=== PATIENT | male | born 1965 | race Caucasian/White ===

== ENCOUNTER 2017-02-07 12:24 | Emergency (ER) | payer SELFPAY ==
[~2017-02-07] VITALS: Ht 182.9 cm; Wt 102.0 kg
[~2017-02-07 12:24] MED LIST: DICL75 PO; ROBA750T3 PO
[2017-02-07 12:31] VITALS: BP 128/72; PULSE 78; RESP 18; TEMP 98.4; O2SAT 97
--- NOTE | 2017-02-07 13:48 | RADRPT ---
EXAM DATE/TIME: 02/07/2017 13:35 [place] COMPARISON: No previous studies available for comparison. INDICATIONS : Pain and swelling right elbow, insect bite Sunday. MEDICAL HISTORY : None. SURGICAL HISTORY : None. ENCOUNTER: Initial ACUITY: 4 - 6 days PAIN SCORE: 5/10 LOCATION: Right elbow FINDINGS: Soft tissue swelling of the olecranon bursa without joint effusion or fracture. Bone density is norm al. CONCLUSION: Soft tissue swelling otherwise negative. Quoc Chang MD FACR on February 07, 2017 at 13:45 Board Certified Radiologist. This report was verified electronically.
[2017-02-07] MEDS ORDERED: CEPH-460 PO (13:56)
[2017-02-07] MEDS ORDERED: BACT800T5 PO (13:56)
--- NOTE | 2017-02-07 13:57 | PD ---
HPI . Right elbow redness Chief Complaint: Skin Problem Time Seen by Provider: 12:51 Travel History International Travel<30 days: No Contact w/Intl Traveler<30days: No Traveled to known affect area: No History of Present Illness HPI 51-year-old male patient presents emergency department for evaluation of right elbow redness and swelling. Patient states he was cleaning out a shed 5 days ago and believes he was bit by a spider. Patient denies any major medical history and doesn't take any daily medication. Patient denies any fevers, chills, malaise, chest pain, shortness breath. Patient denies any history of MDRO. Patient denies any IV drug use. Patient is up-to-date on his tetanus. [facility] Past Medical History Medical History: Denies Significant Hx Tetanus Vaccination: < 5 Years Past Surgical History Surgical History: No Previous Surgery Social History Alcohol Use: Yes Tobacco Use: Yes (1 PPD) Substance Use: No Allergies-Medications (Allergen,Severity, Reaction): Coded Allergies: No Known Allergies (Unverified Adverse Reaction, Unknown, 02/07/17) Reported Meds & Prescriptions Reported Meds & Active Scripts Active Keflex (Cephalexin) 500 Mg Cap 500 Mg PO Q6H 10 Days Bactrim DS (Sulfamethoxazole-Trimethoprim) 800-160 Mg Tab 1 Tab PO BID 10 Days Review of Systems Except as stated in HPI: all other systems reviewed are Neg Physical Exam Narrative GENERAL: Well-nourished, well-developed 51-year-old male patient in no acute distress. Nontoxic appearing. SKIN: Erythema to the right elbow. HEAD: Normocephalic. Atraumatic. EYES: No scleral icterus. No injection or drainage. NECK: Supple, trachea midline. No JVD or lymphadenopathy. CARDIOVASCULAR: Regular rate and rhythm without murmurs, gallops, or rubs. Radial Pulses +2 bilaterally. RESPIRATORY: Breath sounds equal bilaterally. No accessory muscle use. GASTROINTESTINAL: Abdomen soft, non-tender, nondistended. MUSCULOSKELETAL: Full range of motion of the right elbow with flexion and extension. No ecchymosis, obvious deformity, cyanosis, or edema. BACK: Nontender without obvious deformity. No CVA tenderness. Data Data Last Documented VS Vital Signs Date Time Temp Pulse Resp B/P (MAP) Pulse Ox O2 Delivery O2 Flow Rate FiO2 02/07/17 12:31 98.4 78 18 128/72 (90) 97 Orders Orders Elbow, Complete (4 Vws) (02/07/17 13:18) Ed Discharge Order (02/07/17 13:57) MDM Medical Decision Making Medical Screen Exam Complete: Yes Emergency Medical Condition: Yes Differential Diagnosis Differential diagnosis include but not limited to cellulitis, abscess, septic arthritis, bursitis Narrative Course 51-year-old male patient presents emergency department for evaluation of erythema to the right elbow since last Sunday. Patient believes he was bitten by a spider. X-ray of the right elbow ordered and pending. Patient states he was able to squeeze purulent drainage out of the elbow earlier today however at this time the area is indurated with no purulent drainage or area of fluctuation. Patient has any fever, chills, malaise. X-ray shows soft tissue swelling but is otherwise negative. Patient treated for cellulitis with Bactrim and Keflex and discharged home with instructions to follow-up with his primary care return to the emergency Department with any worsening condition. Last Impressions Elbow X-Ray 02/07/17 1318 Signed Impressions: Service Date/Time: Sunday, February 07, 2017 13:35 - CONCLUSION: Soft tissue swelling otherwise negative. Quoc Chang MD FACR Diagnosis Primary Impression: Cellulitis Qualified Codes: L03.113 - Cellulitis of right upper limb Referrals: Primary Care Physician Patient Instructions: Cellulitis (DC), General Instructions Additional Instructions: Please return to emergency department if your symptoms return or worsen. Follow up with your primary care provider. Take medications as prescribed. Keep elbow wound clean and dry. [id number] ibuprofen or Tylenol as needed for pain or fever. Bactrim is free at [facility]Other Pt SpecificInfo: Prescription(s) given Scripts Cephalexin (Keflex) 500 Mg Cap 500 MG PO Q6H for Infection for 10 Days, #40 CAP 0 Refills Prov: Margoth Palumbo 02/07/17 Sulfamethoxazole-Trimethoprim (Bactrim DS) 800-160 Mg Tab 1 TAB PO BID for Infection for 10 Days, #20 TAB 0 Refills Prov: Margoth Palumbo 02/07/17 Disposition: 01 DISCHARGE HOME Condition: Stable Margoth Palumbo Feb 07, 2017 13:57
== END 2017-02-07 14:10 | disposition home or self-care (01) ==
LOC: PHEFT 12:24
DX: L03.113 Cellulitis of right upper limb (principal); F17.200 Nicotine dependence, unspecified, uncomplicated
CPT/HCPCS: 73080; 99283

== ENCOUNTER 2017-09-20 12:57 | Inpatient (IN) ==
[2017-11-16 14:36] VITALS: BP_SYST 115; PULSE 63; RESP 18; O2SAT 98
== END 2017-09-22 12:50 | disposition home or self-care (01) ==
LOC: N07 09-21 13:47
PROVIDERS: ADMIT Hospitalist; ATTEND Hospitalist